=== PATIENT | male | born 1985 | race African-American/Black ===

== ENCOUNTER 2018-04-03 10:02 | Outpatient (CLI) | payer BC ==
--- NOTE | 2018-04-03 11:12 | RAD ---
RIGHT MIDDLE FINGER THREE VIEWS: History: Injury to finger. FINDINGS: There are no signs of fracture or dislocation. IMPRESSION: Negative right middle finger. POS: C
--- NOTE | 2018-04-03 11:14 | RAD ---
THREE VIEWS OF THE LEFT WRIST: INDICATION: Left wrist pain. COMPARISON: None. FINDINGS: There is soft tissue swelling overlying the dorsal aspect of the wrist. No definite acute fracture o r subluxation is evident. Carpal alignment appears within normal limits. IMPRESSION: Soft tissue swelling of the left wrist. No definite acute osseous abnormality evident. POS: [facility]
== END 2018-04-03 10:03 | disposition home or self-care (01) ==
LOC: BICRAD 10:02
PROVIDERS: ATTEND Family Medicine
DX: S69.92XA Unspecified injury of left wrist, hand and finger(s), initial encounter (principal); S60.943A Unspecified superficial injury of left middle finger, initial encounter; M79.89 Other specified soft tissue disorders
CPT/HCPCS: 36415; 80053; 80061; 82306; 84550